=== PATIENT | male | born 1990 | race Caucasian/White ===

== ENCOUNTER 2022-03-17 07:23 | Inpatient (IN) ==
[2022-03-17] MEDS ORDERED: Senna TAB 8.6 mg TAB PO PRN (16:58)
[2022-03-17] MEDS: Enoxaparin 30 MG/0.3 ML SYR SUBCUT SCH (20:22)
[2022-03-18] MEDS: PTO:Omeprazole 20 mg CAP (NF) PO SCH (05:26)
[2022-03-18] MEDS: Enoxaparin 30 MG/0.3 ML SYR SUBCUT SCH ×2 (08:11→21:08)
[2022-03-18] MEDS: Polyethylene Glycol 3350 17 GM PACKET PO SCH (08:11)
[2022-03-19] MEDS: PTO:Omeprazole 20 mg CAP (NF) PO SCH (05:47)
[2022-03-19 06:29] LABS: ABS Basophils 0.1 10^3/ul (0-0.2); ABS Eosinophils 0.2 10^3/ul (0-0.6); ABS Lymphocytes 1.9 10^3/ul (1.0-4.8); ABS Monocytes 0.6 10^3/ul (0-0.8); ABS Neutrophils 3.5 10^3/ul (1.5-7.7); Eosinophil % 2.8 %; Hematocrit 34 % (42-52); Hemoglobin 11.6 g/dL (14.0-18.0); Lymphocyte % 30.7 %; Mean Corpuscular HGB Conc 34 g/dL (31-36); Mean Corpuscular Hemoglobin 30 pg (27-31); Mean Corpuscular Volume 88 fL (80-94); Mean Platelet Volume 7.2 fL (7.4-10.4); Platelet Count 598 10^3/uL (150-450); Red Blood Count 3.93 10^6 /uL (4.18-5.48); Red Cell Distribution Width 16 % (10-15); White Blood Count 6.2 10^3/uL (3.5-10.8)
[2022-03-19 07:06] LABS: Albumin 3.9 g/dL (3.2-5.2); Albumin/Globulin Ratio 1.6 (1-3); Calcium 9.4 mg/dL (8.6-10.3); Globulin 2.5 g/dL (2-4); Potassium 4.7 mmol/L (3.5-5.0); Total Bilirubin 0.7 mg/dL (0.2-1.0); Total Protein 6.4 g/dL (6.4-8.9)
[2022-03-19] MEDS: Polyethylene Glycol 3350 17 GM PACKET PO SCH (08:08)
[2022-03-19] MEDS: Enoxaparin 30 MG/0.3 ML SYR SUBCUT SCH ×2 (08:09→20:27)
[2022-03-20] MEDS: PTO:Omeprazole 20 mg CAP (NF) PO SCH (05:43)
[2022-03-20] MEDS: Polyethylene Glycol 3350 17 GM PACKET PO SCH (07:47)
[2022-03-20] MEDS: Enoxaparin 30 MG/0.3 ML SYR SUBCUT SCH ×2 (09:21→21:03)
[2022-03-21] MEDS: PTO:Omeprazole 20 mg CAP (NF) PO SCH (05:30)
[2022-03-21] MEDS: Polyethylene Glycol 3350 17 GM PACKET PO SCH (07:56)
[2022-03-21] MEDS: Enoxaparin 30 MG/0.3 ML SYR SUBCUT SCH ×2 (09:51→21:14)
[2022-03-22] MEDS: PTO:Omeprazole 20 mg CAP (NF) PO SCH (05:38)
[2022-03-22] MEDS: Polyethylene Glycol 3350 17 GM PACKET PO SCH (08:11)
[2022-03-22] MEDS: Enoxaparin 30 MG/0.3 ML SYR SUBCUT SCH ×2 (08:14→20:53)
[2022-03-23] MEDS: PTO:Omeprazole 20 mg CAP (NF) PO SCH (05:23)
[2022-03-23] MEDS: Polyethylene Glycol 3350 17 GM PACKET PO SCH (07:57)
[2022-03-23] MEDS: Enoxaparin 30 MG/0.3 ML SYR SUBCUT SCH ×2 (07:59→21:30)
[2022-03-24] MEDS: PTO:Omeprazole 20 mg CAP (NF) PO SCH (05:28)
[2022-03-24] MEDS: Polyethylene Glycol 3350 17 GM PACKET PO SCH (08:19)
[2022-03-24] MEDS: Enoxaparin 30 MG/0.3 ML SYR SUBCUT SCH ×2 (08:20→21:17)
[2022-03-25] MEDS: PTO:Omeprazole 20 mg CAP (NF) PO SCH (05:45)
[2022-03-25 06:07] VITALS: BP 132/81
[2022-03-25] MEDS: Polyethylene Glycol 3350 17 GM PACKET PO SCH (08:47)
[2022-03-25] MEDS: Enoxaparin 30 MG/0.3 ML SYR SUBCUT SCH (08:49)
== END 2022-03-25 12:00 | disposition home or self-care (01) | DRG 860 ==
LOC: PMRU 15:27
PROVIDERS: ADMIT Physical Medicine & Rehabilitation; ATTEND Physical Medicine & Rehabilitation